=== PATIENT | male | born 1970 | race Two or more races ===

== ENCOUNTER 2019-04-02 09:52 | Emergency (ER) | payer SELFPAY ==
[~2019-04-02] VITALS: Ht 175.3 cm; Wt 113.4 kg
[2019-04-02 10:19] VITALS: BP 185/98
[2019-04-02] MEDS ORDERED: KETOROLAC 60 MG/2 ML VIAL. IM ONE (11:15)
--- NOTE | 2019-04-02 11:20 | PHYS DOC ---
Past Medical History Past Medical History: No Pertinent History Past Surgical History: No Surgical History Alcohol Use: Occasionally Drug Use: None Adult General Chief Complaint Chief Complaint: EYE PROBLEMS HPI HPI Patient is a 48 year old male who presents with left eye pain. The patient has bruising around the left eye and has redness of the conjunctiva. The patient states someone threw a softball him and hit him in the left eye when he was playing softball this past . The patient states it originally did not hurt as much as it does now but has gotten worse. Rates his pain today is 9 out of 10 and throbbing. Has not tried any medications at home. Associated symptoms include headache, and dizziness. Review of Systems Review of Systems Constitutional: Denies fever or chills [] Eyes: Denies change in visual acuity, Reports L eye redness and eye pain [] HENT: Denies nasal congestion or sore throat [] Respiratory: Denies cough or shortness of breath [] Cardiovascular: No additional information not addressed in HPI [] GI: Denies abdominal pain, nausea, vomiting, bloody stools or diarrhea [] : Denies dysuria or hematuria [] Musculoskeletal: Denies back pain or joint pain [] Integument: Denies rash or skin lesions [] Neurologic: Denies headache, focal weakness or sensory changes [] Endocrine: Denies polyuria or polydipsia [] Complete systems were reviewed and found to be within normal limits, except as documented in this note. Current Medications Current Medications Current Medications Medications (Trade) Dose Ordered Sig/[facility] Start Time Stop Time Status Last Admin Dose Admin Ketorolac Tromethamine (Toradol Im) 30 mg 1X ONCE 04/02/19 11:15 04/02/19 11:16 DC 04/02/19 11:16 30 MG Allergies Allergies Allergies Coded Allergies Type Severity Reaction Last Updated Verified No Known Drug Allergies 04/02/19 No Physical Exam Physical Exam Constitutional: Well developed, well nourished, no acute distress, non-toxic appearance. [] HENT: Normocephalic, atraumatic, bilateral external ears normal, oropharynx moist, no oral exudates, nose normal. [] Eyes: PERRLA, EOMI, conjunctiva red in left eye, has periorbital bruising around L eye, no discharge. [] Neck: Normal range of motion, no tenderness, supple, no stridor. [] Cardiovascular:Heart rate regular rhythm, no murmur [] Lungs & Thorax: Bilateral breath sounds clear to auscultation [] Abdomen: Bowel sounds normal, soft, no tenderness, no masses, no pulsatile masses. [] Skin: Warm, dry, no erythema, no rash. [] Back: No tenderness, no CVA tenderness. [] Extremities: No tenderness, no cyanosis, no clubbing, ROM intact, no edema. [] Neurologic: Alert and oriented X 3, normal motor function, normal sensory function, no focal deficits noted. [] Psychologic: Affect normal, judgement normal, mood normal. [] Current Patient Data Vital Signs Vital Signs Date Time Temp Pulse Resp B/P (MAP) Pulse Ox O2 Delivery O2 Flow Rate FiO2 04/02/19 10:19 97.4 82 18 185/98 (127) 95 Room Air 97.4 EKG EKG [] Radiology/Procedures Radiology/Procedures []PATIENT: AMADOR MCCRARYCOUNT: [id number]#: [id number] : 1970 LOCATION: ER AGE: 48 SEX: M EXAM STATUS: REG ER ORD. PHYSICIAN: ROBSON JAMES APRN REASON: hit in face with softball PROCEDURE: CT HEAD AND MAXILLOFACIAL WO Examination: CT HEAD AND MAXILLOFACIAL WO History: Hit in face with softball. Pain. Comparison/Correlation: None Findings: Axial images of the head and maxillofacial structures were obtained without contrast. Sagittal and coronal reformatted images of the maxillofacial structures were provided. Ventricles are normal size. There is a punctate density involving the left frontal deep white matter at the level of the left frontal horn on axial image 15 of series 2. No definite intracranial hemorrhage, midline shift, or mass effect. Globes and optic nerves are unremarkable. Mucosal thickening of the maxillary sinus ostia bilaterally is noted. 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 No acute fracture or bony destruction. Significant periapical lucency is noted involving the right lateral upper incisor. Impression: No definite intracranial hemorrhage. No depressed fracture. Right lateral upper incisor periapical lucency of concern for periodontal disease. PQRS Compliance Statement: One or more of the following individualized dose reduction techniques were utilized for this examination: 1. Automated exposure control 2. Adjustment of the mA and/or kV according to patient size 3. Use of iterative reconstruction technique Electronically signed by: Richard High MD (04/02/2019 12:24 PM) [id number] DICTATED and SIGNED BY: RICHARD HIGH MD DATE: 04/02/19 1224 Course & Med Decision Making Course & Med Decision Making Pertinent Labs and Imaging studies reviewed. (See chart for details) Will get CT of Head/Maxillofacial bones. Will give Toradol. Patient is agreeable. Negative CT scan. Pain appear to be coming from swelling. Will d/c home. Visual acuities show 20/20 bilaterally, 20/15 individually. Dragon Disclaimer Dragon Disclaimer This electronic medical record was generated, in whole or in part, using a voice recognition dictation system. Departure Departure Impression: Primary Impression: Eye bruise Additional Impression: Concussion Disposition: HOME, SELF-CARE Condition: STABLE Referrals: NO PCP (PCP) Patient Instructions: Concussion and Brain Injury, [id number] Additional Instructions: Thank you for visiting [facility]. We appreciate you trusting us with your care. If any additional problems come up don't hesitate to return to visit us. Please follow up with your primary care provider so they can plan additional care if needed and know about the problem that you had. If symptoms worsen come back to the Emergency Department. Any concerning symptoms that start such as chest pain, shortness of Air, weakness or numbness on one side of the b rachelle, running high fevers or any other concerning symptoms return to the ER. Please rest your brain as much you can over the next several days and try to avoid anything that could strain the brain such as electronics. Problem Qualifiers Primary Impression: Eye bruise Encounter type: initial encounter Laterality: left Qualified Codes: S05.12XA - Contusion of eyeball and orbital tissues, left eye, initial encounter Additional Impression: Concussion Encounter type: initial encounter Loss of consciousness presence/duration: without LOC Qualified Codes: S06.0X0A - Concussion without loss of consciousness, initial encounter ROBSON JAMES APRN Apr 02, 2019 11:20
--- NOTE | 2019-04-02 12:27 | RAD ---
Examination: CT HEAD AND MAXILLOFACIAL WO History: Hit in face with softball. Pain. Comparison/Correlation: None Findings: Axial images of the head and maxillofacial structures were obtained without contrast. Sagittal and coronal reformatted images of the maxillofacial structures were provided. Ventricles are normal size. There is a punctate density involving the left frontal deep white matter at the level of the left frontal horn on axial image 15 of series 2. No definite intracranial hemorrhage, midline shift, or mass effect. Globes and optic nerves are unremarkable. Mucosal thickening of the maxillary sinus ostia bilaterally is noted. 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 No acute fracture or bony destruction. Significant periapical lucency is noted involving the right lateral upper incisor. Impression: No definite intracranial hemorrhage. No depressed fracture. Right lateral upper incisor periapical lucency of concern for periodontal disease. PQRS Compliance Statement: One or more of the following individualized dose reduction techniques were utilized for this examination: 1. Automated exposure control 2. Adjustment of the mA and/or kV according to patient size 3. Use of iterative reconstruction technique Electronically signed by: Richard Austin MD (04/02/2019 12:24 PM) [id number]
== END 2019-04-02 13:41 | disposition home or self-care (01) ==
LOC: ER 09:52
DX: S06.0X0A Concussion without loss of consciousness, initial encounter (principal); S05.12XA Contusion of eyeball and orbital tissues, left eye, initial encounter; R42 Dizziness and giddiness; W21.07XA Struck by softball, initial encounter; Y93.64 Activity, baseball; Y92.89 Other specified places as the place of occurrence of the external cause; Y99.8 Other external cause status
CPT/HCPCS: 70450; 70486; 96372; 99284; J1885